=== PATIENT | male | born 1980 | race Two or more races ===

== ENCOUNTER 2020-02-28 15:26 | Outpatient (CLI) | payer OTHER ==
--- NOTE | 2020-02-28 13:58 | SLEEP CARE CONSULTATION ---
Information from patient questionnaire entered by Marya Blue. I have reviewed and concur with the information entered by Marya Blue. This document represents the service I personally performed and the decisions made by me, Benjamin Browning MD, [facility]. History of Present Illness Service Date and Time: 02/28/2020 1340 Reason for Visit: New patient, Previously diagnosed sleep apnea, sleep apnea on CPAP therapy Chief Complaint: reports: Excessive daytime sleepiness, Observed pauses in breathing, Fatigue Duration of Symptoms: 19 years Usual bedtime: 10 pm Time it takes to fall asleep: a few minutes with CPAP or without Snores at night: No Observed to quit breathing while asleep: Yes Sleeps alone due to snoring: No Number of times waking at night: 2-4 Reasons for waking at night: reports: Gasping for air Toss, Turn, or Twitch while sleeping: Yes Recalls having dreams: Yes (sometimes) Usually gets out of bed at: 6 am Feels refreshed in the morning: No Morning headache: Yes (sometimes) Sleepy or fatigued during the day: Yes Ever fallen asleep while driving: No Takes day naps: No Prior sleep studies: Yes Year and Where: [address] [place] [address] Additional HPI information: I had the pleasure of seeing Mr. St today regarding obstructive sleep apnea- hypopnea. As you know, he is a 40 year old lady who was diagnosed with the sleep-disordered breathing is [place] in 2011. The sleep study report is not available. He was prescribed a CPAP device set at 5 20 cmH2O. He says that the machine now works intermittently. The compliance data show usage in 28 out of 180 nights between 02/23 and 08/21/19, averaging 6.3 hours a night. The residual AHI is 2.5 and average time in large leak per day is 33 minutes. He wears a full face mask. He gets his supplies from [employer]. He finds the treatment beneficial. He lost 25 lbs and wonders if he still needs to use the CPAP. 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 Patient is and lives in [place]. Have you smoked in the past 12 months: No Alcohol use: Yes Alcohol amount and frequency: 4-5 drinks a couple times a year Caffeine use: Yes Caffeine amount and frequency: 3 drinks a day Family History Family history of sleep disordered breathing: No Allergies and Home Medications Drug allergies reviewed: Yes Home medication list reviewed: Yes Review of Systems Weight gain over past 5 years: 25 Weight loss over past 5 years: 25 Cardiovascular: reports: high blood pressure Gastrointestinal: reports: other (GERD) Psychiatric: reports: depression Musculoskeletal: reports: joint pain Immunologic: reports: allergies to food or environment (seasonal allergies, allergic to soy/bee stings) Physical Exam Height: 6 ft Weight: 264 lb Body Mass Index: 35.8 BMI Classification: Obese Impression and Plan IMPRESSION: 1. Obstructive Sleep Apnea-Hypopnea Syndrome, as previously diagnosed. The severity is unknown. Narrow oropharynx and obesity are common predisposing factors for obstructive sleep apnea-hypopnea syndrome. Pathophysiology of sleep-disordered breathing was discussed. Because his CPAP is now older than the useful life of 5 years, I will order the patient a new one and make it an autoCPAP set between 8 and 15 cmH2O. An in-laboratory polysomnography will be ordered to confirm the diagnosis which the sleep lab reopens. Plan: 1. Prescription made for an autoCPAP, heated humidifier, and related supplies. 2. Schedule an in-laboratory polysomnography. The patient should not use his CPAP one night prior to the sleep study. 3. Avoid alcohol, sedative and muscle relaxant around bedtime. 4. Attempt to lose more weight. 5. Return in 1 to 2 weeks after the study to discuss results and initiate therapy Counseling Topics: Weight control Prescriptions: Auto CPAP Follow up with Sleep Care in: 1-2 months Visit Type: Telehealth Video Video Type: [employer] Patient Location: Home Location of Provider: Office Patient agrees and consents to this telehealth visit type: Yes Patient agrees to have their insurance billed: Yes Time Spent with Patient (minutes): 15 Provider Statement: I spent 100% of the Telehealth Video Call with the patient with greater than 50% spent counseling the patient and coordination of care.
== END 2020-02-28 15:27 | disposition home or self-care (01) ==
LOC: SC 15:26
PROVIDERS: ATTEND Internal Medicine Pulmonary Disease
DX: G47.33 Obstructive sleep apnea (adult) (pediatric) (principal); I10 Essential (primary) hypertension; E66.9 Obesity, unspecified; Z68.35 Body mass index [BMI] 35.0-35.9, adult

== ENCOUNTER 2020-04-06 19:26 | Outpatient (CLI) | payer OTHER | END 2020-04-06 19:27 | disposition home or self-care (01) | LOC: SC 19:26 | PROVIDERS: ATTEND Internal Medicine Pulmonary Disease | DX: G47.33 Obstructive sleep apnea (adult) (pediatric) (principal) | CPT/HCPCS: 95810 ==

== ENCOUNTER 2020-04-20 09:21 | Outpatient (CLI) | payer OTHER ==
[2020-04-20 15:39] VITALS: BP 170/100
--- NOTE | 2020-04-20 15:39 | SLEEP CARE CONSULTATION ---
Information from patient questionnaire entered by Marya Blue. I have reviewed and concur with the information entered by Marya Blue. This document represents the service I personally performed and the decisions made by me, Clau Plasencia RN, MSN, [employer]. History of Present Illness Service Date and Time: 04/20/2020920 Initial [place] Sleepiness Scale score: 15 (in 2019) Current [place] Sleepiness Scale score: 12 Additional HPI information: ANNAMARIA COHN returns for follow up and results of the recently performed polysomnography for re-evaluation of his sleep apnea. He was diagnosed in 2011, using CPAP nightly but device needs to be replaced due to intermittent function. Since we did not have a copy of his sleep studies, a re-evaluation was completed. Also he lost 25 pounds and needed evaluation to see if apnea still p resent. I explained the pathophysiology behind obstructive sleep apnea. We then spent quite a bit of time discussing different treatment options. For mild obstructive sleep apnea, surgery and oral appliance are alternatives to nasal CPAP therapy but in moderate or severe cases, nasal CPAP is the most effective and reliable treatment. After some discussion, the patient opted to continue with the nasal CPAP therapy. Nasal autoCPAP set at [id number] will be ordered with rationale explained. A manual titration study will be ordered if unable to find optimal pressure with office adjustments. The patient was instructed to call the CPAP supplier to discuss any mechanical problem that may occur. If the mask given is uncomfortable or is difficult to keep on through the night even with adjustment, contact the CPAP supplier as many will replace with another mask style if notified before 30 days. If snoring or perceives is not getting enough air or too much air from the machine, notify this office. Patient counseled not drink alcohol less than 4 hours before bedtime as it can increase snoring and apnea. Patient was cautioned about risks of drowsy driving until sleepiness symptoms resolve. Patient denies drowsy driving. Sleep Study - Discussion Sleep Study discussion: The quality of the study is good. The patient had normal sleep efficiency. The sleep architecture was abnormal for sleep fragmentation and reduced amount of time spent in slow wave sleep (N3). Respiratory monitoring showed moderate obstructive sleep apnea-hypopnea (AHI = 23.3) associated with frequent arousals, oxyhemoglobin desaturation and mild hypoxia (sheila oxygen saturation of 87%). The respiratory events occurred mainly during supine sleep (supine AHI = 70.3; non-supine = 6.19). Snore was loud in intensity. There was no significant periodic leg movement of sleep. Cardiac rhythm was normal sinus rhythm without significant arrhythmia. No abnormal behavior (parasomnia) observed during the night. Allergies and Home Medications Home medication list reviewed: No (no change stated) Review of Systems Review of systems same as previous: Yes Physical Exam Blood Pressure: 170/100 (150's/95' at home with red cuff) Cuff size: long Heart Rate: 75 O2 Saturation: 98 Height: 6 ft Weight: 308 lb (with fatigues and boots ) Body Mass Index: 41.8 BMI Classification: Morbidly Obese Impression and Plan 1. Obstructive Sleep Apnea-Hypopnea Syndrome, moderate, with lowest oxygen saturation of 87%. As noted above, patient's 8 year old CPAP is malfunctioning and needs replaced. Positive pressure therapy could benefit his hypertension and anxiety/ depression. His CPAP will be updated with an autoCPAP therapy with pressure set at 5-20 cmH2O. A manual titration study will be completed if unable to find optimal treatment pressure with office adjustments. he is to check online for difference between the two CPAP devices so can let [employer] know his preference. 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 Compliance guidelines also reviewed. A copy of compliance guidelines will be given for reference at check out. Because the apnea is more severe supine, I instructed to avoid sleeping supine using pillow positioning until able to start CPAP use. He has been losing weight and still obese. I discussed associated health risks with obesity and encouraged him to continue to lose weight. Weight loss will also benefit his hypertension. [facility] current CPAP range will accommodate weight loss. 2. Elevated blood pressure ,on medication, monitors at home and generally runs 150's / 95's. He keeps a log for his PCP review and has guidelines when to call for modification. Generally he uses a red large cuff and I used a long cuff initially. Retaken after 5 minutes with large red cuff and same reading. Patient denies any chest pain/ shortness of breath. He is aware of risks of untreated hypertension. He is to retake blood pressure at home and contact PCP if still elevated with rationale discussed. He takes Micardis 40mg bid bid and amlo dipine 10mg daily. Last dose a hour ago of both medications. * Update CPAP and set at auto pressure at 5-20 cm H2O. * Attempt to lose weight. * Avoid alcohol consumption near bedtime. * Avoid supine sleep until using CPAP. * contact PCP if blood pressure remains elevated. * The patient is again cautioned about driving until sleepiness completely resolves. * Return one month after CPAP obtained. I will assess response to therapy and compliance at that time. Visit Type: In Office Provider Statement: I spent 100% of the Face to Face Visit with the patient with greater than 50% spent counseling the patient and coordination of care.
== END 2020-04-20 09:22 | disposition home or self-care (01) ==
LOC: SC 09:21
PROVIDERS: ATTEND Nurse Practitioner Family
DX: G47.33 Obstructive sleep apnea (adult) (pediatric) (principal); I10 Essential (primary) hypertension; E66.01 Morbid (severe) obesity due to excess calories; Z68.41 Body mass index [BMI] 40.0-44.9, adult
CPT/HCPCS: 99212; 99215

== ENCOUNTER 2020-08-01 14:26 | Outpatient (CLI) | payer OTHER ==
--- NOTE | 2020-08-01 14:57 | SLEEP CARE CONSULTATION ---
Information from patient questionnaire entered by Lakshmi Roberts. I have reviewed and concur with the information entered by Lakshmi Roberts. This document represents the service I personally performed and the decisions made by me, Dianna Layne ARNP. History of Present Illness Service Date and Time: 08/01/2020 1426 Previous diagnosis: Moderate, Obstructive Sleep Apnea-Hypopnea Syndrome AHI: 23.3 Reason for follow up: first compliance (06/24/20) Equipment type: CPAP Equipment obtained from: Other ([employer]; getting supplies as needed) Mask style: Full face Backup mask available: No (keep mask when replaced) Last cushion change: 2.5 months Prior sleep studies: Yes Year and Where: 2019 [facility] and 2011 [facility] additional information: ANNAMARIA COHN was diagnosed to have moderate, AHI 23.3, obstructive sleep apnea-hypopnea syndrome and returned today for CPAP therapy first compliance follow-up. Sleep Study - Results Prior sleep studies: Yes Year and Where: 2011 [place], [place] CPAP Compliance Data - Data Reviewed with Patient Average duration of nightly device use: 5 h 45 min Compliance rate %: 80 Current pressure setting (cmH2O): 5-20 Average residual AHI: 3.2 Central apnea: 0.0 Obstructive apnea: 1.9 Average large leak: 19.8 L/min Subjective Patient concerns: reports: air blowing in eyes (improved with mask adjustment), dry mouth, nose, throat (general dryness in the morning). denies: aerophagia, mask discomfort, mask leak noise, condensation in mask/hose, nasal congestion, epistaxis, other Observed to snore while using device: No Current pressure setting perceived as: comfortable On therapy, patient: reports: sleeping better, awakening more refreshed, being more awake and alert during the day, more rested overall. denies: drowsiness while driving Initial [place] Sleepiness Scale score: 15 (in 2019) Current [place] Sleepiness Scale score: 15 Allergies and Home Medications Drug allergies reviewed: Yes (NKDA) Home medication list reviewed: Yes (no changes) Review of Systems Review of systems same as previous: No (shoulder injury 1.5 weeks ago, follow up with Ortho) Physical Exam Heart Rate: 86 O2 Saturation: 98 Height: 6 ft Weight: 306 lb Body Mass Index: 41.5 BMI Classification: Morbidly Obese Impression and Plan 1. Obstructive Sleep Apnea-Hypopnea Syndrome, moderate, with good treatment compliance and good apnea control. On CPAP therapy, the patient has better sleep quality and is more rested overall. Patient has had some issues with general oral dryness. Oral dryness can be reduced by adjusting humidity setting higher or heated hose lower or by adjusting both settings. Patient advised that chronic oral dryness can affect dental health and advised to follow up with dentist. In addition, there are oral dryness products that can be used to reduce dryness such as Biotene products, Dry mouth rinse and Xylomelts. Patient to discuss best option with dentist. Patient's apnea severity and rationale for treatment to reduce apnea, improve sleep quality and reduce cardiovascular and cerebrovascular events was reviewed. I also reviewed the benefit of consistent device use of CPAP for hypertension. * Change auto CPAP pressure to 13-18 cmH2O * Notify me if snoring with mask or feeling that the pressure is too much or too little * Attempt to lose weight * Call this office if any problems using CPAP * Return for follow up in 1-2 months, or sooner if concerns arise Visit Type: In Office Time Spent with Patient (minutes): 20 Provider Statement: I spent 100% of the Face to Face Visit with the patient with greater than 50% spent counseling the patient and coordination of care.
== END 2020-08-01 14:27 | disposition home or self-care (01) ==
LOC: SC 14:26
PROVIDERS: ATTEND Nurse Practitioner Family
DX: G47.33 Obstructive sleep apnea (adult) (pediatric) (principal); E66.01 Morbid (severe) obesity due to excess calories; Z68.41 Body mass index [BMI] 40.0-44.9, adult
CPT/HCPCS: 99212; 99213

== ENCOUNTER 2020-09-07 14:26 | Outpatient (CLI) | payer OTHER ==
--- NOTE | 2020-09-07 15:06 | SLEEP CARE CONSULTATION ---
Information from patient questionnaire entered by Lakshmi Roberts. I have reviewed and concur with the information entered by Lakshmi Roberts. This document represents the service I personally performed and the decisions made by me, Dianna Layne ARNP. History of Present Illness Service Date and Time: 09/07/2020 1426 Previous diagnosis: Moderate, Obstructive Sleep Apnea-Hypopnea Syndrome AHI: 23.3 Reason for follow up: other (6-week followup - pressure change) Equipment type: CPAP Equipment obtained from: Other ([employer]; getting supplies as needed) Mask style: Full face Mask brand: Resmed Backup mask available: No (not yet, will keep mask when replaced) Last cushion change: 5 months Prior sleep studies: Yes Year and Where: 2019 [facility] and 2011 [facility] additional information: ANNAMARIA COHN was diagnosed to have moderate, AHI 23.3, obstructive sleep apnea- hypopnea syndrome and returned today for CPAP therapy 6 week pressure change follow-up. Sleep Study - Results Prior sleep studies: Yes Year and Where: 2011 [place], [place] CPAP Compliance Data - Data Reviewed with Patient Average duration of nightly device use: 5 h 57 min Compliance rate %: 63 Current pressure setting (cmH2O): 13-18 Average residual AHI: 2.6 Compliance data discussion: He states he has woke up and found the machine off because the headgear hose fitting has come undone from the hose and the machine shut down. He also had to travel for work and was unable to take the machine with him. Subjective Missed days of use due to: reports: travel (for work) Patient concerns: reports: mask leak noise (adjusting helps), dry mouth, nose, throat (dry mouth). denies: aerophagia, mask discomfort, air blowing in eyes, condensation in mask/hose, nasal congestion, epistaxis, other Observed to snore while using device: No Current pressure setting perceived as: comfortable On therapy, patient: reports: sleeping better, awakening more refreshed, being more awake and alert during the day, more rested overall. denies: drowsiness while driving Initial [place] Sleepiness Scale score: 15 (in 2019) Current [place] Sleepiness Scale score: 16 Allergies and Home Medications Drug allergies reviewed: Yes (NKDA) Home medication list reviewed: Yes (no changes) Review of Systems Review of systems same as previous: Yes (no changes) Physical Exam Heart Rate: 76 O2 Saturation: 99 Height: 6 ft Weight: 314 lb Body Mass Index: 42.5 BMI Classification: Morbidly Obese Impression and Plan 1. Obstructive Sleep Apnea-Hypopnea Syndrome, moderate, with fair treatment compliance and good apnea control. On CPAP therapy, the patient has better sleep quality and is more rested overall. He is feeling very comfortable with CPAP use. He has had some mouth dryness in the mornings. Oral dryness can be reduced by adjusting humidity setting higher or heated hose lower or by adjusting both settings. Oral instructions given on how to change humidity and heated hose settings with rationale explaining why to change. He stated understanding. Patient's apnea severity and rationale for treatment to reduce apnea, improve sleep quality and reduce cardiovascular and cerebrovascular events was reviewed. I also reviewed the benefit of consistent device use of CPAP for hypertension. * Continue auto CPAP pressure at 13-18 cmH2O * Notify me if snoring with mask or feeling that the pressure is too much or too little * Attempt to lose weight * Call this office if any problems using CPAP * Return for follow up in 3 months , or sooner if concerns arise Counseling Topics: Spare mask, Weight loss health impact Visit Type: In Office Time Spent with Patient (minutes): 16 Provider Statement: I spent 100% of the Face to Face Visit with the patient with greater than 50% spent counseling the patient and coordination of care.
== END 2020-09-07 14:27 | disposition home or self-care (01) ==
LOC: SC 14:26
PROVIDERS: ATTEND Nurse Practitioner Family
DX: G47.33 Obstructive sleep apnea (adult) (pediatric) (principal); E66.01 Morbid (severe) obesity due to excess calories; Z68.41 Body mass index [BMI] 40.0-44.9, adult
CPT/HCPCS: 99212; 99213

== ENCOUNTER 2022-02-07 13:54 | Outpatient (CLI) | payer OTHER ==
--- NOTE | 2022-02-07 23:51 | MRI Report ---
PROCEDURE: Shoulder RT W/O INDICATIONS: RIGHT SHOULDER PAIN TECHNIQUE: Noncontrast oblique coronal T2 fast spin echo with fat saturation, oblique sagittal T1 spin echo and T2 fast spin echo with fat saturation, axial T1 spin echo and T2 fast spin echo with fat saturation t hrough the shoulder. COMPARISON: None. FINDINGS: Image quality: There is motion artifact limiting evaluation. Rotator cuff: There is a moderate to severe articular surface partial thickness tear at the insertion of the supraspinatus measuring approximately 2.0 cm in anteroposterior dimension. No discrete full-t hickness tear or tendon retraction. The tear involves anterior fibers of the infraspinatus at its ins ertion. The subscapularis and teres minor appear intact. No rotator cuff muscle atrophy on sagittal i mages. Bones and bursae: No bone marrow contusions or fractures. There is mild acromioclavicular joint dege neration. The acromion demonstrates a meso acromion type os acromiale. Minimal subacromial/subdeltoi d bursal fluid is present. Capsule and soft tissues: In the absence of intra-articular contrast, the labrum and glenohumeral li gaments appear intact. The long head of the biceps tendon demonstrates normal location and morpholog y. The rotator interval appears normal, without fibrosis. The coracohumeral ligament is normal in t hickness. IMPRESSION: 1. Moderate to severe articular surface partial thickness tearing at the insertion of the supraspinat us with extension posteriorly to involve the anterior fibers of infraspinatus. No discrete full-thick ness tear or tendon retraction. 2. Meso acromion type os acromiale demonstrated. There is mild acromioclavicular joint degeneration w ith trace subacromial/subdeltoid bursal fluid. Reviewed by: Kieran Larsen MD on 02/07/2022 11:52 PM PDT Approved by: Kieran Larsen MD on 02/07/2022 11:52 PM PDT Station ID: [id number]
== END 2022-02-07 13:55 | disposition home or self-care (01) ==
LOC: DI 13:54
PROVIDERS: ATTEND Family Medicine
DX: M75.111 Incomplete rotator cuff tear or rupture of right shoulder, not specified as traumatic (principal); M19.011 Primary osteoarthritis, right shoulder

== ENCOUNTER 2023-12-24 13:26 | Outpatient (CLI) | payer OTHER ==
--- NOTE | 2023-12-24 15:17 | Ultrasound Report ---
PROCEDURE: Renal (Retroperitoneal) INDICATIONS: MILD NEPHROPATHY TECHNIQUE: Real-time scanning was performed of the retroperitoneal organs, with image documentation. COMPARISON: None. FINDINGS: Kidneys: Kidneys are normal in size. Right kidney measures 12.1 cm long; left kidney measures 14.2 cm long. Right renal cortical thickness is 1.4 cm; left renal cortical thickness is 1.5 cm. No moreno d masses, hydronephrosis, or nephrolithiasis. Left renal simple cyst within the mid/superior kidney measuring 4.7 x 3.9 x 4.8 cm Bladder: Pre-void bladder volume is 378 mL. Post-void residual is 14.5 mL. Pre-void images demonst rate no intraluminal masses or stones. On pre-void images, bilateral ureteral jets are noted with co jennifer Doppler interrogation. (Of note, ureteral jets may not be detectable in up to 25% of cases due t o insufficient differences in specific gravity between ureteral and bladder urine). Miscellaneous: No free abdominal fluid. IMPRESSION: 1.Kidneys are normal in size and appearance. 2.Left renal simple cysts. Reviewed by: Nolan Nguyen MD on 12/24/2023 3:15 PM PST Approved by: Nolan Nguyen MD on 12/24/2023 3:15 PM PST Station ID: [id number]
== END 2023-12-24 13:27 | disposition home or self-care (01) ==
LOC: DI 13:26
PROVIDERS: ATTEND Family Medicine
DX: N28.9 Disorder of kidney and ureter, unspecified (principal); N28.1 Cyst of kidney, acquired

== ENCOUNTER 2024-01-24 10:12 | Outpatient (CLI) | payer OTHER ==
--- NOTE | 2024-01-26 12:20 | MRI Report ---
PROCEDURE: Shoulder LT WO INDICATIONS: L SHOULDER PAIN TECHNIQUE: Noncontrast oblique coronal T2 fast spin echo with fat saturation, oblique sagittal T1 spin echo and T2 fast spin echo with fat saturation, axial T1 spin echo and T2 fast spin echo with fat saturation p ain and 3-D gradient echo through the shoulder. COMPARISON: None. FINDINGS: Image quality: Excellent. Rotator cuff: High-grade intrasubstance tearing is seen involving the supraspinatus tendon and anter ior fibers of the infraspinatus tendon at the distal insertions measuring 1.7 cm anteroposterior dime nsion. There is questionable focal perforation of bursal and articular sided fibers. Findings are sup erimposed on moderate to severe supraspinatus and infraspinatus tendinosis. Teres minor tendon is int act. There is moderate subscapularis tendinosis. No significant rotator cuff tendinosis is seen. Bones and bursae: No acute trabecular bone injury. Small chronic cystic changes are seen at the post erosuperior humeral head. Mild partial thickness cartilage irregularity in the glenohumeral joint. Mi ld degenerative changes are seen at the acromioclavicular joint with small marginal osteophytes. An u nfused os acromiale is seen with mild degenerative changes at the synchondrosis. Small amount of flui d is seen in the subacromial/subdeltoid bursa. No significant glenohumeral effusion is seen. Capsule and soft tissues: Suspected nondisplaced tearing of the superior to anterosuperior labrum. T here is an adjacent paralabral cyst measuring approximately 4 x 1 x 2 mm. The proximal biceps long he ad tendon demonstrates mild tendinosis. There is partial effacement of fat signal in the rotator norm al. There is thickening of the anterior band of the inferior glenohumeral ligament. IMPRESSION: 1.At least high-grade partial intrasubstance tearing of the supraspinatus tendon and anterior fibers infraspinatus tendon at their distal insertions measuring 1.7 cm in anteroposterior dimension. Questi onable focal perforation of the bursal and articular sided fibers. Moderate to severe supraspinatus a nd infraspinatus tendinosis and moderate subscapular is tendinosis. 2.Mild proximal biceps long head tendinosis. 3.Nondisplaced tearing of the superior to anterosuperior labrum with an adjacent 4 mm paralabral cyst . 4.Mild acromioclavicular joint osteoarthrosis. Unfused os acromiale is seen with degenerative changes at the synchondrosis. 5.Small subacromial/subdeltoid bursal effusion or mild bursitis. 6.Partial effacement of the rotator interval fat and mild thickening of the inferior glenohumeral lig ament are nonspecific, but can be seen in the setting of the clinical syndrome of adhesive capsulitis . Reviewed by: Aaron Vieyra MD on 01/26/2024 12:18 PM PDT Approved by: Aaron Vieyra MD on 01/26/2024 12:18 PM PDT Station ID: [id number]
== END 2024-01-24 10:13 | disposition home or self-care (01) ==
LOC: DI 10:12
PROVIDERS: ATTEND Family Medicine
DX: M75.112 Incomplete rotator cuff tear or rupture of left shoulder, not specified as traumatic (principal); M19.012 Primary osteoarthritis, left shoulder; M67.922 Unspecified disorder of synovium and tendon, left upper arm; S43.432A Superior glenoid labrum lesion of left shoulder, initial encounter

== ENCOUNTER 2024-07-08 08:00 | Outpatient (CLI) | payer OTHER ==
--- NOTE | 2024-07-08 20:41 | XRAY Report ---
PROCEDURE: Shoulder 2+V LT INDICATIONS: SHOULDER PAIN LEFT TECHNIQUE: 3 views of the shoulder were acquired. COMPARISON: None. FINDINGS: Bones: No fractures or dislocations. Mild acromioclavicular joint osteoarthritic changes are seen. N o suspicious bony lesions. Visualized ribs appear intact. Soft tissues: No suspicious soft tissue calcifications. The visualized lungs are within normal limi ts. IMPRESSION: No acute bony abnormality. Mild acromioclavicular joint osteoarthritis. If indicated, MRI of shoulder can be done for evaluation of internal derangement. Reviewed by: Sarbjit Bingham MD on 07/08/2024 8:40 PM PDT Approved by: Sarbjit Bingham MD on 07/08/2024 8:40 PM PDT Station ID: [id number]
== END 2024-07-08 23:59 | disposition home or self-care (01) ==
LOC: DI.WOS 08:00
PROVIDERS: ATTEND Orthopaedic Surgery
DX: M19.012 Primary osteoarthritis, left shoulder (principal)